=== PATIENT | female | born 1990 | race Hispanic/Latino ===

== ENCOUNTER 2018-04-15 12:00 | Observation (INO) | payer BC ==
[2018-04-15] MEDS ORDERED: Dicyclomine 20 MG TAB ONE (12:23)
[2018-04-15] MEDS ORDERED: diphenhydrAMINE 50 MG/ML VIAL ONE (12:23)
[2018-04-15] MEDS ORDERED: Metoclopramide HCl 10 MG/2 ML VIAL ONE (12:23)
[2018-04-15 12:53] LABS: Bilirubin Negative (Negative); Blood, Urine Negative (Negative); Clarity CLEAR (Clear); Glucose, Urine (Dipstick) Negative (Negative); Leukocyte Negative (Negative); Nitrite Negative (Negative); Protein, Urine (Dipstick) Trace mg/dL (Neg-Trace); Specific Gravity, Urine 1.028 (1.002-1.036); Urobilinogen 0.2 mg/dL (0.2-1.0); pH, Urine 7.5 (5.0-9.0)
[2018-04-15 13:04] LABS: #Lymphocytes 0.4 thou/uL (1.20-3.40); #Monocytes 0.3 thou/uL (0.11-0.59); #Neutrophils 8.6 thou/uL (1.40-6.50); %Basophils 0.1 % (0.0-1.0); %Eosinophils 0.5 % (0.0-10.0); %Lymphocytes 4.6 % (21.0-51.0); %Monocytes 3.4 % (0.0-10.0); %Neutrophils 91.4 % (42.0-75.0); Hemoglobin 15.2 g/dL (12.0-16.0); Mean Corpuscular HGB CONC 33.9 g/dL (32.0-36.0); Mean Corpuscular Hemoglobin 32.3 pg (27.0-31.0); Mean Corpuscular Volume 95.3 fL (78.0-98.0); Mean Platelet Volume 7.5 fL (7.4-10.4); Platelet Count 141 thou/uL (130-400); White Blood Cell (WBC) Count 9.4 thou/uL (4.8-10.8)
[2018-04-15 13:07] LABS: BHCG - Serum Negative (NEGATIVE); Pregs Control Background? CLEAR/WHITE (CLR/WHITE); Pregs Control Bar Appear? YES (CONTROL BAR)
[2018-04-15 13:51] LABS: ALT (SGPT) 49 U/L (8-55); AST (SGOT) 30 U/L (5-34); Albumin 4.2 g/dL (3.5-5.0); Alkaline Phosphatase 58 U/L (40-150); Anion Gap 20 mmol/L (10-20); BUN (Urea Nitrogen) 10 mg/dL (7.0-18.7); Bilirubin, Total 0.5 mg/dL (0.2-1.2); Calc. Creatinine Clearance 0 mL/min (70-130); Calcium 8.9 mg/dL (7.8-10.44); Carbon Dioxide 15 mmol/L (22-29); Chloride 107 mmol/L (98-107); Estimated GFR-MDRD Greater than 90; Globulin 3.4 g/dL (2.4-3.5); Glucose 99 mg/dL (70-105); Potassium 3.9 mmol/L (3.5-5.1); Protein, Total 7.6 g/dL (6.0-8.3); Sodium 138 mmol/L (136-145)
[2018-04-15] MEDS ORDERED: ISOVUE-370 76%-LOCM 1 ML ONE (14:42)
[2018-04-15] MEDS ORDERED: Dexamethasone 20 MG/5 ML VIAL ONE (14:56)
[2018-04-15] MEDS ORDERED: Ketorolac Tromethamine 30 MG/ML VIAL ONE (14:56)
[2018-04-15] MEDS ORDERED: Ondansetron HCl/PF 4 MG/2 ML Vial ONE (14:56)
[2018-04-15] MEDS ORDERED: Succinylcholine Chloride 20 MG/ML 10 ml SYRINGE FS ONE (14:56)
[2018-04-15] MEDS ORDERED: Lidocaine 1% PF 5 ML VIAL ONE (14:56)
[2018-04-15] MEDS ORDERED: PROPOFOL 200 MG/20 ML VIAL ONE (14:56)
--- NOTE | 2018-04-15 15:03 | CT ---
CT OF THE ABDOMEN AND PELVIS WITH iv CONTRAST: DATE: 04/15/18. PROVIDED CLINICAL HISTORY: Lower abdominal pain. FINDINGS: Comparison 07/11/16. Evaluation is limited in the absence of oral contrast material. The visualized lung bases appear clear. The solid abdominal organs demonstrate an unremarkable CT ap pearance. There is minimal fat stranding seen in the right lower quadrant. The appendix is somewhat diminutive in appearance. It does not appear dilated but demonstrates internal fluid density and equivocal mur al thickening. There is fluid density involving portions of the colon. There is no evidence for bow el obstruction. There is no free air or free fluid apparent. The osseous structures demonstrate no concerning osteoblastic or osteolytic lesions. IMPRESSION: Findings equivocal for early acute appendicitis. POS: TIFFANIE
[2018-04-15] MEDS ORDERED: metroNIDAZOLE 500 MG/100 ML BAG ONE (15:33)
[2018-04-15] MEDS ORDERED: Bupivacaine/Epinephrine 0.25% 30 ML VIAL ONE (15:43)
[2018-04-15] MEDS ORDERED: Midazolam HCl 2 mg/2 ml Vial ONE (15:51)
[2018-04-15] MEDS ORDERED: Fentanyl 250 MCG/5 ML VIAL ONE (15:51)
[2018-04-15] MEDS ORDERED: Ondansetron HCl/PF 4 MG/2 ML Vial IVP PRN ×2 (17:48→18:36)
[2018-04-15] MEDS ORDERED: Promethazine HCl 25 MG/ML VIAL IM PRN ×2 (17:48→18:36)
[2018-04-15] MEDS ORDERED: Promethazine HCl 25 MG/ML VIAL SLOW IVP PRN (17:48)
--- NOTE | 2018-04-15 18:19 | HP ---
DATE OF ADMISSION: 04/15/2018 CHIEF COMPLAINT: Abdominal pain. HISTORY OF PRESENT ILLNESS: This is a 27-year-old female who presents with pain in the right lower q uadrant, started as crampy midepigastric pain the last few days, associated with nausea, diarrhea, no w the pain is more localized to the right lower quadrant, described as 8/10 and sharp. Nothing makes it better, nothing makes it worse. Seen in the emergency department where CT scan shows acute appen dicitis. PAST MEDICAL HISTORY: Rheumatoid arthritis, not on the medication. PAST SURGICAL HISTORY: None. MEDICINES: control pill. ALLERGIES: PENICILLIN. SOCIAL HISTORY: No smoking, alcohol or other drugs. REVIEW OF SYSTEMS: Ten system review of systems otherwise negative unless described above. PHYSICAL EXAMINATION: HEENT: Sclerae are anicteric. Oropharynx clear. NECK: No lymphadenopathy. CHEST: Clear. HEART: Regular rate and rhythm. ABDOMEN: Soft, tender right lower quadrant, localized guarding, no rebound, no abdominal hernias. EXTREMITIES: No ischemia or edema to extremities. IMAGING: CT scan shows acute appendicitis. ASSESSMENT: Acute appendicitis. PLAN: Laparoscopic appendectomy. Risks, benefits, alternatives discussed. She gives consent. We w ill do this today.
[2018-04-15] MEDS: Sodium Chloride 0.9% 1,000 ML IV SCH (18:35)
[2018-04-15] MEDS ORDERED: Dextrose 5% in Water 1,000 ML IV PRN (18:36)
[2018-04-15] MEDS ORDERED: HYDROcodone/Acetaminophen 10/325 mg Tablet PO PRN ×2 (18:36)
[2018-04-15] MEDS ORDERED: hydrALAZINE 20 MG/ML VIAL SLOW IVP PRN (18:36)
[2018-04-15] MEDS ORDERED: Dextrose 50% Abboject 50 ML SYRINGE SLOW IVP PRN (18:36)
[2018-04-15] MEDS ORDERED: Morphine 4 MG/ML VIAL SLOW IVP PRN (18:36)
--- NOTE | 2018-04-15 18:37 | OP ---
PREOPERATIVE DIAGNOSIS: Acute appendicitis. POSTOPERATIVE DIAGNOSIS: Acute appendicitis. PROCEDURE: Laparoscopic appendetomy. SURGEON: Vincenzo Erazo MD ANESTHESIA: General. ESTIMATED BLOOD LOSS: Minimal. COMPLICATIONS: None. SPECIMEN: Appendix. FINDINGS: Appendicitis. DESCRIPTION OF PROCEDURE: The patient was taken to the operating room and placed supine on the table . After general anesthetic was obtained, the abdomen was prepped and draped in a sterile fashion. A Garcia catheter had been placed. Curved incision was made below the umbilicus. Cautery was used to dissect down to and score the fascia. Abdominal cavity entered bluntly using a Kenzie clamp. Holding stitch of PDS was placed on each side of the fascia. Berry trocar was placed. High-flow pneumoper itoneum was obtained. Suprapubic 5-mm port and left lower quadrant 5-mm port were placed under direc t visualization. Cecum was rolled over to reveal acute appendicitis. Window was made at the base of the appendix and the mesoappendix. Laparoscopic stapler was fired across the base of the appendix. A vascular reload was fired across the mesoappendix. Appendix was placed in an Endo catch bag and b rought out through the Guero. All port sites were infiltrated using local anesthetic. There was no bleeding. There was no evidence of perforation. All ports were removed under direct visualization without bleeding. Pneumoperitoneum was let down. PDS was used to close the fascial defect below the umbilicus. All incisions were irrigated and closed using 4-0 Monocryl and Dermabond. The patient w ent to recovery in stable condition. All sponge counts, needle counts, and lap counts were correct.
[2018-04-15 18:44] VITALS: BMI 21.9
[2018-04-15] MEDS: Famotidine 20 MG TAB PO SCH (20:57)
[2018-04-15] MEDS: Famotidine/PF 20 mg/2ml Vial SLOW IVP SCH (20:57)
[2018-04-16] MEDS: metroNIDAZOLE 500 MG in Premix Bag 1 BAG IVPB SCH ×2 (00:35→08:37)
[2018-04-16] MEDS ORDERED: Levofloxacin 500 mg/D5W 100 ml Premix Bag IVPB SCH (04:00)
[2018-04-16] MEDS: Sodium Chloride 0.9% 1,000 ML IV SCH (05:00)
[2018-04-16] MEDS: Famotidine 20 MG TAB PO SCH (08:37)
[2018-04-16] MEDS: Famotidine/PF 20 mg/2ml Vial SLOW IVP SCH (08:40)
[2018-04-16 11:39] VITALS: BP 116/64; TEMP 98.3
== END 2018-04-16 11:58 | disposition home or self-care (01) ==
LOC: ERS 12:00 → SDC 16:24 → SURG A 16:50
PROVIDERS: ADMIT Surgery; ATTEND Surgery
PROC: 0DTJ4ZZ Resection of Appendix, Percutaneous Endoscopic Approach (ICD-10-PCS; principal; 2018-04-15)
DX: K35.80 Unspecified acute appendicitis (principal); Z88.0 Allergy status to penicillin
CPT/HCPCS: 36415; 74177; 80053; 81003; 83605; 84703; 85025; 87040; 87086; 88304; 96361; 96365; 96366; 96367; 96375; G0378; J0744; J1100; J1200; J1885; J1956; J2001; J2250; J2405; J2704; J2765; J3010

== ENCOUNTER 2024-05-31 17:17 | Emergency (ER) | payer BC ==
[2024-05-31] MEDS ORDERED: Fluorescein Opthalmic Strip ONE (20:09)
[2024-05-31] MEDS ORDERED: Proparacaine 0.5% Opth 15 ML BOT EA EYE SCH ×2 (20:30→21:00)
[2024-05-31] MEDS ORDERED: Ketorolac Tromethamine 30 MG (1 mL) VIAL ONE (20:43)
[2024-05-31] MEDS ORDERED: HYDROcodone/Acetaminophen 5/325 mg Tablet ONE (20:47)
[2024-05-31] MEDS ORDERED: Ibuprofen 200 MG TAB ONE (20:52)
== END 2024-05-31 21:43 | disposition home or self-care (01) ==
LOC: ERS 17:17
DX: S05.02XA Injury of conjunctiva and corneal abrasion without foreign body, left eye, initial encounter (principal); W22.8XXA Striking against or struck by other objects, initial encounter; Y99.0 Civilian activity done for income or pay
CPT/HCPCS: 70450; 70486; J1885